=== PATIENT | male | born 1995 | race Caucasian/White ===

== ENCOUNTER 2023-03-07 18:37 | Emergency (ER) | payer OTHER, SELFPAY ==
--- NOTE | ~2023-03-07 | XR_ITS ---
EXAMINATION: XR CHEST CLINICAL INFORMATION: Chest pain when coughing COMPARISON: 05/08/2019 TECHNIQUE: Frontal view of the chest was obtained. FINDINGS: No significant abnormality is noted involving the heart, lungs, mediastinum, bony thorax or soft tissues. XR/XR chest 1V IMPRESSION: Unremarkable examination.
[2023-03-07 19:04] VITALS: BP 143/91; PULSE 106; RESP 18; TEMP 36.7; O2SAT 98; BMI 32.7
--- NOTE | 2023-03-07 19:04 | ED_ITS ---
HPI - General Adult General Chief complaint: Upper Respiratory Symptoms Stated complaint: fever Time Seen by Provider: 03/07/23 21:05 Source: patient Mode of arrival: ambulatory Limitations: no limitations History of Present Illness HPI narrative: Patient is a 28-year-old male presenting to the emergency department with complaint of congestion, productive cough, subjective fevers, and chest tightness as well as loss of taste and smell since . He reports cough is productive of yellow/green sputum. He denies any ear pain or sore throat. Significant other is with patient and reports similar symptoms. Patient reports that he had to leave work early on when symptoms began. Has not taken any [id number] medications for his symptoms. MD complaint: cough, fever Onset (ago): day(s) Quality: other (tight) Relieving factors: rest Exacerbating factors: none Associated symptoms: cough, fever/chills and other (Loss of taste/smell) Treatments prior to arrival: none Related Data Allergies Allergy/AdvReac Type Severity Reaction Status Date / Time No Known Allergies Allergy Verified 03/07/23 19:04 [No Known Allergies*] Review of Systems Review of Systems: As per HPI. Yes all other systems are reviewed and are negative Constitutional: Constitutional: Reports as per HPI [facility] Social History Social History Advance Directives: No Advance Directives Information Provided: No Physical Exam ED Vital Signs: Vital Signs - 24 hr 03/07/23 19:04 Temperature 98.1 F Pulse Rate 106 H Respiratory Rate 18 Blood Pressure 143/91 H Pulse Oximetry 98 Oxygen Delivery Method Room Air BMI result Body Mass Index 32.7 Vital signs have been reviewed and appear to be correct. Blood pressure mildly elevated. Heart rate mildly elevated. Respiratory rate normal. Temperature normal. Oxygen saturation normal. Const General: cooperative, healthy appearing and no acute distress Orientation/consciousness: oriented to person, oriented to place, oriented to time and patient oriented x3 Limitations: no limitations HENMT Head: Yes normocephalic and Yes atraumatic Ears: external ears normal General nose exam: Normal external nose present Face and sinus: Yes face symmetric Mouth: oropharynx normal and moist mucous membranes Throat: Yes uvula midline Eyes Pupils: Equal, round and reactive pupils present Neck Neck: Yes normal visual inspection and Yes supple Resp Effort & Inspection: normal respiratory effort and able to speak in complete sentences Auscultation: clear to auscultation bilaterally Cardio Rate: regular rate Rhythm: regular rhythm Heart sounds: S1 normal heart sound present and S2 normal heart sound present GI Palpation (GI): Soft to palpation and nontender Auscultation: normoactive bowel sounds General: Yes no CVA tenderness Back/Spine/Pelvis Back: no CVA tenderness Skin General skin exam: elasticity normal and turgor normal Neuro General: oriented to person, oriented to place, oriented to time, patient oriented x3, moves all extremities, no focal motor deficits and CN's II-XI intact bilaterally Cranial nerves: Yes Equal, round and reactive pupils present Cognition (Neuro): normal cognition Extrem General: Yes full ROM, Yes no pedal edema and Yes no calf tenderness Psych Mental Status: mental status grossly normal Affect: normal affect Thought process: Normal thought process present Course Course Course Narrative: RME: 28 Yold male presents to the ED fever, loss of smell, loss of taste, and chest pain. COughing green phelghm. Xray and SARS ordered Medical Decision Making Medical Decision Making [facility] Narrative: Patient is a 28-year-old male presenting to the emergency department with complaint of congestion, productive cough, subjective fevers, and chest tightness as well as loss of taste and smell since . On exam patient is awake, A+Ox3, VS WNL, afebrile, normal neurological exam without focal deficits, LS CTA throughout, no erythema or edema to posterior oropharynx. Given reported symptoms and physical exam findings, initial differential includes Covid, flu, RSV, other viral illness, bronchitis, pneumonia. Covid swab positive, flu and RSV negative. No acute abnormalities on chest x-ray. Patient updated on r esults, all questions answered. Offered patient treatment with Paxlovid which patient declined. Advised patient he should continue to isolate through Wednesday and continue to wear mask until he was no longer symptomatic. Advised to use Tylenol or ibuprofen as needed for pain and fevers, ensure adequate rest and adequate fluid intake. Instructed patient follow-up with primary care provider this week. Return precautions discussed at bedside. Patient verbalized understanding of and agreement with plan. Differential Diagnosis Differential Diagnoses: The differential diagnosis associated with the presentation includes As per [facility]. Lab Data [facility] Lab Attestation statement: I reviewed the patient's lab results. As per MDM. Labs: Lab Results 03/07/23 Range/Units 20:30 Influenza Type A (PCR) NEGATIVE (Negative) Influenza Type B (PCR) NEGATIVE (Negative) RSV RNA Qual (PCR) NEGATIVE (Negative) SARS-CoV-2 RNA (RT-PCR) POSITIVE A (Negative) Independent Interpretation I performed an independent interpretation of an: Plain X-Ray Interpretation: No acute abnormalities Radiology Impression Discussion of test interpretation with radiology: I have reviewed the radiologist's reading. Radiologist Impression: XR/XR chest 1V IMPRESSION: Unremarkable examination. Independent Historian Clinical information obtained from an independent historian. History obtained from or confirmed by: Spouse External Record Review External record reviewed: Inpatient record, Office record and Outpatient record Prescription Management I considered prescription management with: Antiviral Discharge Plan Discharge Clinical Impression: COVID-19 Patient Disposition: Home, Self-Care Instructions: COVID-19 (Coronavirus Disease 2019) (ED) Additional Instructions: You were evaluated in the emergency department today for cough, fever. Your COVID test was resulted as positive. You should continue to isolate at home for another 2 days. You should continue to wear mask for 5 days after that. You were offered treatment with Paxlovid which you declined. If you change your mind, contact your primary care provider to discuss this treatment. Return to the emergency department with worsening shortness of breath, chest pain, fever that does not improve with Tylenol or ibuprofen, persistent vomiting, or any other concerning symptoms. Be sure to get plenty of rest and drink plenty of fluids. You should follow-up with your primary care provider this week. Stand Alone Forms: Work/School Release Interventions: ED Discharge Assessment Last Done: 03/07/23 22:37 Discharge Date/Time: 03/07/23 22:38
[2023-03-07 21:41] LABS: Influenza A PCR NEGATIVE (Negative); Influenza B PCR NEGATIVE (Negative); Resp Syncy Virus RNA Qual PCR NEGATIVE (Negative); SARS COV2 PCR INHOUSE POSITIVE (Negative)
== END 2023-03-07 22:38 | disposition home or self-care (01) ==
PROVIDERS: Physician Assistant; Emergency Provider Emergency Medicine Emergency Medical Services
DX: U07.1 COVID-19 (principal); R50.9 Fever, unspecified; R05.9 Cough, unspecified
CPT/HCPCS: 0241U; 71045; 99282; 99283

== ENCOUNTER 2023-06-08 16:26 | Emergency (ER) | payer OTHER, SELFPAY ==
--- NOTE | ~2023-06-08 | XR_ITS ---
EXAMINATION: XR CHEST 2 VIEW CLINICAL INFORMATION: Chest pain COMPARISON: 03/07/2023. TECHNIQUE: PA and lateral views of the chest obtained. FINDINGS: The lungs are clear. There are no pleural effusions. The cardiomediastinal silhouette is normal. No rib fracture, bone lesion or pneumothorax is evident. XR/XR chest 2V IMPRESSION: No acute cardiopulmonary disease.
--- NOTE | 2023-06-08 16:30 | ED_ITS ---
HPI - General Adult General Chief complaint: Asthma Stated complaint: diff breathing asthma Related Data Allergies Allergy/AdvReac Type Severity Reaction Status Date / Time No Known Allergies Allergy Verified 03/07/23 19:04 [No Known Allergies*] [facility] Social History Social History Advance Directives: No Advance Directives Information Provided: No Physical Exam ED Vital Signs: BMI result Body Mass Index 32.6 Course Course Course Narrative: RME- 28 year old female presents for evaluation of shortness of breath and chest pain. Symptoms started 3 days ago. Lungs are clear to auscultation. Plan for chest x-ray and viral swabs Discharge Plan Discharge Clinical Impression: Chest pain Patient Disposition: Left W/O Completing Treatment Discharge Date/Time: 06/08/23 17:54
[2023-06-08 16:31] VITALS: BP 146/74; PULSE 80; RESP 18; TEMP 36.9; O2SAT 97; BMI 32.6
== END 2023-06-08 17:54 | disposition left against medical advice (07) ==
PROVIDERS: Emergency Provider Emergency Medicine
DX: R06.02 Shortness of breath (principal); R86.9 Unspecified abnormal finding in specimens from male genital organs
CPT/HCPCS: 71046; 99281; 99283

== ENCOUNTER 2024-02-02 17:47 | Emergency (ER) | payer OTHER, SELFPAY ==
--- NOTE | ~2024-02-02 | XR_ITS ---
EXAMINATION: XR THORACOLUMBAR SPINE CLINICAL INFORMATION: Back pain COMPARISON: None available. TECHNIQUE: 2 views of the thoracic spine FINDINGS: The thoracic vertebral bodies demonstrate normal height. Overall sagittal alignment is maintained. The intervertebral disc heights are normal. The paraspinous soft tissues appear unremarkable. XR/XR thoracic spine 2V IMPRESSION: No radiographic evidence of acute abnormality involving the thoracic spine. No significant degenerative changes
--- NOTE | ~2024-02-02 | XR_ITS ---
EXAMINATION: XR LUMBOSACRAL SPINE CLINICAL INFORMATION: Back pain COMPARISON: None available. TECHNIQUE: Three views of the lumbosacral spine. FINDINGS: The vertebral bodies and posterior elements are normal. Mild facet arthropathy in the lower lumbar spine. The disc spaces are preserved and the vertebral alignment is normal. The paraspinal soft tissues are normal. XR/XR lumbar spine 2-3V IMPRESSION: No acute process.
--- NOTE | 2024-02-02 18:00 | ED_ITS ---
HPI - General Adult General Chief complaint: Back Pain/Injury Stated complaint: work inj, back pain Time Seen by Provider: 02/02/24 19:38 Source: patient and RN notes reviewed Mode of arrival: ambulatory Limitations: no limitations History of Present Illness ED Provider: Florence Auguste PA-C HPI narrative: This is a 28-year-old male who presents emergency department with complaints of low back pain since today. Patient states that he was building a Pallet while at work. Place the palate down on the ground and went to stand back up and he felt a pain in his back which radiated down into his leg. He states that he has had similar symptoms in the past. He denies any urinary or bowel incontinence. No retention. No saddle anesthesia. Denies taking any medications at home to treat his current symptoms. No urinary symptoms. No other complaints or concerns at this time. MD complaint: Back pain Onset (ago): hour(s) Location: back Radiation: extremity Severity: moderate Quality: burning and aching Pain Consistency: constant Relieving factors: immobilization Exacerbating factors: movement Associated symptoms: denies other symptoms Treatments prior to arrival: none Related Data Previous Rx's ?Medication ?Instructions ?Recorded acetaminophen 500 mg tablet 500 mg PO Q6H PRN pain #30 tabs 02/02/24 (Tylenol Extra Strength) cyclobenzaprine 10 mg tablet 10 mg PO TID PRN muscle spasm #10 02/02/24 tabs ibuprofen 600 mg tablet 600 mg PO Q6H PRN pain #30 tabs 02/02/24 lidocaine 5 % topical patch 1 patch topical DAILY #30 ea 02/02/24 (Lidoderm) Allergies Allergy/AdvReac Type Severity Reaction Status Date / Time No Known Allergies Allergy Verified 02/02/24 18:02 [No Known Allergies*] Review of Systems Review of Systems: Yes all other systems are reviewed and are negative Constitutional: Constitutional: Reports as per [facility] Social History Social History Advance Directives: No Advance Directives Information Provided: No Physical Exam ED Vital Signs: Vital Signs - 24 hr 02/02/24 18:01 Temperature 98.5 F Pulse Rate 96 Respiratory Rate 16 Blood Pressure 152/82 H Pulse Oximetry 98 Oxygen Delivery Method Room Air BMI result Body Mass Index 36.0 Const General: cooperative, comfortable and no acute distress Orientation/consciousness: patient oriented x3 Limitations: no limitations HENMT Head: Yes normal to inspection, Yes normocephalic and Yes atraumatic Ears: hearing grossly normal bilaterally General nose exam: Normal external nose present Face and sinus: Yes normal facial exam Mouth: Normal oral and palatal mucosa present, oropharynx normal and moist mucous membranes Throat: Yes posterior oropharynx normal Eyes General: appearance normal, both eyes and all related structures Eyelids: Yes eyelids normal Conjunctivae: conjunctivae normal Sclerae: sclerae normal Pupils: Equal, round and reactive pupils present EOM: EOMs intact bilaterally Neck Neck: Yes normal visual inspection, Yes full ROM and Yes no lymphadenopathy Lymphatic: no lymphadenopathy noted Chest Chest palpation & inspection: normal inspection of the chest Resp Effort & Inspection: normal respiratory effort and able to speak in complete sentences Auscultation: clear to auscultation bilaterally, no crackles, no rales, no rho nchi and no wheezes Cardio Rate: regular rate Rhythm: regular rhythm Heart sounds: S1 normal heart sound present and S2 normal heart sound present GI Inspection: Yes normal to inspection Back/Spine/Pelvis Other: Tenderness palpation along the left SI joint region, and left buttocks. He is ambulatory. DTRs are 2+. Strength 5/5 in lower extremities. Skin General skin exam: no rashes or lesions noted Trauma: no lacerations or abrasions Wounds: no wounds Neuro General: patient oriented x3 and moves all extremities Cranial nerves: Yes Equal, round and reactive pupils present Extrem General: Yes normal to inspection Right upper extremity: normal to inspection Left upper extremity: normal to inspection Right lower extremity: normal to inspection Left lower extremity: normal to inspection Course Course Course Narrative: This is an RME done by JEREMY Sanon: Additional HPI, ROS, PE not included below will be deferred to primary provider. 28 year old M with unknown pmh presenting with concerns of back pain following an injury at work today. Pt was building a pallet, bent over and upon trying to straighten spine felt stuck . Pt is concerned for pinched nerve. Additionally c/o left-sided parasthesias down posterior aspect of leg. Denies saddle anesthesia, urinary changes. Appearance: Alert.? Oriented X3.? No acute cardiopulmonary distress distress.? Head: Normocephalic, atraumatic, no step-offs or deformities Neck: Normal inspection.? Neck supple.? CVS: Pulses normal.? Respiratory: No respiratory distress.? Skin: ? Normal skin color. Extremities: 5/5 strength to bilateral upper and lower extremities Neuro: Oriented X 3.? No motor deficit.? No sensory deficit. Reevaluation(s) Reevaluation #1: Patient feeling much better after receiving Toradol. Given strict return precautions. He understands and agrees with plan. Patient stable for discharge Time: 21:11 Medications Administered Discontinued Medications Generic Name Dose Route Start Last Admin Trade Name Humbleq PRN Reason Stop Dose Admin Ketorolac Tromethamine 30 mg 02/02/24 20:06 02/02/24 20:22 Ketorolac Tromethamine 30 Mg/Ml Vial IM 02/02/24 20:07 30 mg ONCE ONE Administration Medical Decision Making Medical Decision Making [facility] Narrative: This is a 28-year-old male who presents emergency department with complaints of back pain since today. On arrival, blood pressure mildly elevated at 150 2/82, all other vital signs within normal limits. He is ambulatory with steady gait. This patient presents with back pain most consistent with lumbar radiculopathy. Differential diagnoses includes lumbago versus musculoskeletal spasm / strain versus sciatica. No back pain red flags on history or physical. Presentation not consistent with malignancy (lack of history of malignancy, lack of B symptoms), fracture (no trauma, no bony tenderness to palpation), cauda equina (no bowel or urinary incontinence/retention, no saddle anesthesia, no distal weakness), pyelonephritis (afebrile, no CVAT, no urinary symptoms). X-rays were obtained, revealing no bony abnormality. Patient medicated with Toradol. Will continue to monitor pending re-evaluation Differential Diagnosis Differential Diagnoses: The differential diagnosis associated with the presenta tion includes See above Radiology Impression Discussion of test interpretation with radiology: I have reviewed the radiologist's reading. Radiologist Impression: XR/XR thoracic spine 2V IMPRESSION: No radiographic evidence of acute abnormality involving the thoracic spine. No significant degenerative changes Dictated By: Anil George XR/XR lumbar spine 2-3V IMPRESSION: No acute process. Dictated By: Cheng Vigil MD Discharge Plan Discharge Clinical Impression: Lumbar radiculopathy Patient Disposition: Still a Patient Instructions: Lumbar Radiculopathy (ED), Lower Back Exercises (ED) Additional Instructions: You were seen in the emergency department due to back pain. Your x-rays were normal. Alternate between ibuprofen and Tylenol as needed for pain. Flexeril as a muscle relaxants, this can cause drowsiness, do not drink alcohol or drive while taking this medication. Lidoderm patches can also help with your pain. Do not apply heat or ice on top of the Lidoderm patches this can cause a rash. If any new or worsening symptoms occur including but not limited to chest pain, shortness breath, worsening back pain, weakness in your legs, loss of bladder or bowel control, please seek emergent care. Follow-up with a primary care physician. Prescriptions: New ibuprofen 600 mg tablet 600 mg PO Q6H PRN (Reason: pain) Qty: 30 0RF acetaminophen [Tylenol Extra Strength] 500 mg tablet 500 mg PO Q6H PRN (Reason: pain) Qty: 30 0RF lidocaine [Lidoderm] 5 % adhesive patch,medicated 1 patch topical DAILY Qty: 30 0RF Rx Instructions: leave on most painful area for up to 12 hrs cyclobenzaprine 10 mg tablet 10 mg PO TID PRN (Reason: muscle spasm) Qty: 10 0RF Stand Alone Forms: Work/School Release Print Language: Argentine
[2024-02-02 18:01] VITALS: BP 152/82; PULSE 96; RESP 16; TEMP 36.9; O2SAT 98; BMI 36.0
[2024-02-02] MEDS: Ketorolac Tromethamine 30 MG/ML VIAL IM (20:22)
[2024-02-02 21:16] VITALS: BP 134/86; PULSE 86; RESP 18; TEMP 36.8; O2SAT 99
[2024-02-02 21:25] VITALS: BP 134/86; PULSE 86; RESP 18; TEMP 36.8; O2SAT 99
== END 2024-02-02 21:27 | disposition still patient (30) ==
PROVIDERS: Emergency Provider Internal Medicine
DX: S39.92XA Unspecified injury of lower back, initial encounter (principal); M54.16 Radiculopathy, lumbar region; M54.6 Pain in thoracic spine; X50.0XXA Overexertion from strenuous movement or load, initial encounter; Y93.89 Activity, other specified; Y92.89 Other specified places as the place of occurrence of the external cause; Y99.0 Civilian activity done for income or pay
CPT/HCPCS: 72070; 72100; 96372; 99283; 99284; J1885